=== PATIENT | female | born 1985 | race Caucasian/White ===

== ENCOUNTER 2017-01-09 13:15 | Emergency (ER) | payer SELFPAY | END 2017-01-09 13:34 | disposition left against medical advice (07) | LOC: ERS 13:15 | DX: Z53.21 Procedure and treatment not carried out due to patient leaving prior to being seen by health care provider (principal) ==

== ENCOUNTER 2017-09-19 13:56 | Emergency (ER) | payer SELFPAY ==
[2017-09-19 15:14] LABS: #Lymphocytes 1.2 thou/uL (1.20-3.40); #Monocytes 0.3 thou/uL (0.11-0.59); #Neutrophils 2.7 thou/uL (1.40-6.50); %Basophils 0.4 % (0.0-1.0); %Eosinophils 0.7 % (0.0-10.0); %Lymphocytes 28.4 % (21.0-51.0); %Monocytes 7.4 % (0.0-10.0); %Neutrophils 63.1 % (42.0-75.0); Hemoglobin 9.5 g/dL (12.0-16.0); Mean Corpuscular HGB CONC 31.1 g/dL (32.0-36.0); Mean Corpuscular Volume 73.7 fL (78.0-98.0); Mean Platelet Volume 7.3 fL (7.4-10.4); Platelet Count 270 thou/uL (130-400); RBC Distribution Width 13.5 % (11.5-14.5); Red Blood Cell (RBC) Count 4.16 mill/uL (4.20-5.40); White Blood Cell (WBC) Count 4.3 thou/uL (4.8-10.8)
[2017-09-19 15:29] LABS: Elliptocytes SLIGHT = 2-5 cells (100X) (0-1/hpf); MDiff Complete? YES; Microcytosis SLIGHT = 6-15 cells (100X) (0-5/hpf); Ovalocytes SLIGHT = 2-5 cells (100X) (0-1/hpf); PLT Morphology Comment Appears Adequate; Polychromasia SLIGHT = 2-3 cells (100X) (0-2/hpf); Schistocytes SLIGHT = 2-5 cells (100X) (0-1/hpf)
--- NOTE | 2017-09-19 15:30 | RAD ---
FRONTAL VIEW CHEST: Date: 09/19/17 No prior comparison. INDICATION: Fever. FINDINGS: The lungs are hyperinflated without consolidation or effusion. No discrete pneumothorax. Cardiac silh ouette is normal size and the osseous structures are intact. IMPRESSION: No focal consolidation. POS: [facility]
[2017-09-19 15:31] LABS: BHCG - Serum Negative (NEGATIVE); Pregs Control Background? CLEAR/WHITE (CLR/WHITE); Pregs Control Bar Appear? YES (CONTROL BAR)
[2017-09-19 15:35] LABS: ALT (SGPT) 8 U/L (8-55); AST (SGOT) 12 U/L (5-34); Albumin 4.6 g/dL (3.5-5.0); Alkaline Phosphatase 60 U/L (40-150); Anion Gap 12 mmol/L (10-20); BUN (Urea Nitrogen) 12 mg/dL (7.0-18.7); Bilirubin, Total 0.3 mg/dL (0.2-1.2); Calc. Creatinine Clearance 0 mL/min (70-130); Calcium 9.1 mg/dL (7.8-10.44); Carbon Dioxide 23 mmol/L (22-29); Chloride 107 mmol/L (98-107); Estimated GFR-MDRD 69; Globulin 2.8 g/dL (2.4-3.5); Glucose 91 mg/dL (70-105); Lipase 13 U/L (8-78); Potassium 3.9 mmol/L (3.5-5.1); Protein, Total 7.4 g/dL (6.0-8.3); Sodium 138 mmol/L (136-145)
[2017-09-19] MEDS ORDERED: Ketorolac Tromethamine 30 MG/ML VIAL ONE (15:45)
[2017-09-19 16:11] LABS: Bilirubin Negative (Negative); Blood, Urine Moderate (Negative); Clarity CLEAR (Clear); Glucose, Urine (Dipstick) Negative (Negative); Leukocyte Negative (Negative); Nitrite Negative (Negative); Protein, Urine (Dipstick) Negative (Neg-Trace); Specific Gravity, Urine 1.023 (1.002-1.036)
[2017-09-19 16:12] LABS: Bacteria/HPF None Seen HPF (None Seen); Hyaline Casts/LPF 0-3 HYALINE CAST LPF (0-3 Hyaline); Pathc Cast-AUWi Flag 0.72 (0-2.49); RBC/HPF 0-3 HPF (0-3); Squamous Epithelial 0-3 HPF (0-3); WBC/HPF 0-3 HPF (0-3)
[2017-09-19] MEDS ORDERED: Dexamethasone 10 MG/ML VIAL ONE (16:35)
[2017-09-19] MEDS ORDERED: diphenhydrAMINE 50 MG/ML VIAL ONE (16:35)
[2017-09-20 19:54] LABS: Chlamydia by PCR Not Detected (NotDetected); GC by PCR Not Detected (NotDetected)
[2017-09-22 17:24] LABS: Lyme IgG/IgM AB <0.91 ISR (0.00-0.90)
== END 2017-09-19 17:05 ==
LOC: ERS 13:56
DX: N93.9 Abnormal uterine and vaginal bleeding, unspecified (principal); L40.9 Psoriasis, unspecified; F31.9 Bipolar disorder, unspecified
CPT/HCPCS: 36415; 71045; 80053; 81003; 81015; 83690; 84703; 85025; 86618; 86757; 87040; 87480; 87491; 87510; 87591; 87660; 96361; 96374; 96375; J1100; J1200; J1885

== ENCOUNTER 2021-04-11 08:44 | Outpatient (CLI) | payer BC ==
[2021-04-11 10:31] LABS: Hemoglobin 12.4 g/dL (12.0-15.5); Mean Corpuscular HGB CONC 31.6 g/dL (32.0-36.0); Mean Corpuscular Hemoglobin 27.9 pg (27.0-33.0); Mean Corpuscular Volume 88.3 fl (81.6-98.3); Mean Platelet Volume 9.5 fl (7.4-10.4); Platelet Count 269 10x3/uL (150-450); RBC Distribution Width 14.1 % (11.5-14.5); Red Blood Cell (RBC) Count 4.45 10x6/uL (3.90-5.03)
[2021-04-11 10:46] LABS: Anion Gap 12 mmol/L (10-20); BUN (Urea Nitrogen) 15 mg/dL (7.0-18.7); Calc. Creatinine Clearance 0 mL/min (70-130); Calcium 8.9 mg/dL (7.8-10.44); Carbon Dioxide 27 mmol/L (22-29); Chloride 105 mmol/L (98-107); Glucose 84 mg/dL (70-105); Potassium 3.7 mmol/L (3.5-5.1); Sodium 140 mmol/L (136-145)
[2021-04-11 17:42] LABS: SARS-CoV-2 PCR by NAA Not Detected (NotDetected)
== END 2021-04-11 08:45 | disposition home or self-care (01) ==
LOC: LABBT 08:44
PROVIDERS: ATTEND Neurological Surgery
DX: Z01.818 Encounter for other preprocedural examination (principal); M47.12 Other spondylosis with myelopathy, cervical region; Z20.822 Contact with and (suspected) exposure to COVID-19
CPT/HCPCS: 80048; 85027; 93005; 93010; U0003; U0005

== ENCOUNTER 2021-04-16 05:47 | Day surgery (SDC) | payer BC ==
[2021-04-12 10:47] VITALS: BMI 24.2
[2021-04-16] MEDS ORDERED: Midazolam HCl 2 mg/2 ml Vial ONE (07:22)
[2021-04-16] MEDS ORDERED: SUGAMMADEX SODIUM 200 MG/2 ML VIAL ONE (08:36)
[2021-04-16] MEDS ORDERED: Fentanyl 250 MCG/5 ML VIAL ONE (08:36)
[2021-04-16] MEDS ORDERED: Rocuronium Bromide 10 MG/ML (10ML VIAL) ONE (08:57)
[2021-04-16] MEDS ORDERED: Lidocaine 1% PF 5 ML VIAL ONE (08:57)
[2021-04-16] MEDS ORDERED: Glycopyrrolate 0.2 MG/ML 5 ML SYRINGE ONE (08:57)
[2021-04-16] MEDS ORDERED: Ondansetron PF 4 MG/2 ML Vial ONE ×2 (08:57→10:08)
[2021-04-16] MEDS ORDERED: Dexamethasone 20 MG/5 ML VIAL ONE (08:57)
[2021-04-16] MEDS ORDERED: PROPOFOL 200 MG/20 ML VIAL ONE (08:57)
[2021-04-16] MEDS ORDERED: Lidocaine 1% MPF 2 ML VIAL ONE (09:12)
[2021-04-16] MEDS ORDERED: Fentanyl 100 MCG/2 ML VIAL ONE ×3 (10:07→11:32)
[2021-04-16] MEDS ORDERED: HYDROmorphone 0.5 MG/0.5 ML SYRINGE ONE ×2 (10:33→11:11)
[2021-04-16] MEDS ORDERED: HYDROcodone/Acetaminophen 5/325 mg Tablet ONE (12:04)
[2021-04-16] MEDS ORDERED: tiZANidine HCl 4 MG TAB ONE (12:55)
== END 2021-04-16 13:28 | disposition home or self-care (01) ==
LOC: SDC 05:47
PROVIDERS: ATTEND Neurological Surgery
PROC: 0RG10A0 Fusion of Cervical Vertebral Joint with Interbody Fusion Device, Anterior Approach, Anterior Column, Open Approach (ICD-10-PCS; principal; 2021-04-16)
DX: M47.12 Other spondylosis with myelopathy, cervical region (principal); M50.022 Cervical disc disorder at C5-C6 level with myelopathy; M48.02 Spinal stenosis, cervical region; M51.36 Other intervertebral disc degeneration, lumbar region; Z79.899 Other long term (current) drug therapy; Z88.0 Allergy status to penicillin; Z88.1 Allergy status to other antibiotic agents; Z88.5 Allergy status to narcotic agent
CPT/HCPCS: 76000; C1713; C1776; J1100; J1170; J2250; J2405; J2704; J3010

== ENCOUNTER 2021-05-01 12:31 | Outpatient (CLI) | payer BC | END 2021-05-01 12:32 | disposition home or self-care (01) | LOC: TBSIIMAG 12:31 | PROVIDERS: ATTEND Neurological Surgery | DX: M47.12 Other spondylosis with myelopathy, cervical region (principal); Z98.1 Arthrodesis status | CPT/HCPCS: 72040 ==

== ENCOUNTER 2021-05-07 08:17 | Emergency (ER) | payer BC ==
[2021-05-07] MEDS ORDERED: Morphine 4 MG/ML VIAL ONE (09:06)
[2021-05-07 09:14] LABS: #Eosinphils 0.1 thou/uL (0.0-0.7); #Lymphocytes 1.1 thou/uL (1.20-3.40); #Monocytes 0.3 thou/uL (0.11-0.59); #Neutrophils 2.3 thou/uL (1.40-6.50); %Basophils 0.4 % (0.0-1.0); %Eosinophils 2.4 % (0.0-10.0); %Lymphocytes 29.1 % (21.0-51.0); %Monocytes 7.5 % (0.0-10.0); %Neutrophils 60.6 % (42.0-75.0); Hemoglobin 13.8 g/dL (12.0-16.0); Mean Corpuscular HGB CONC 32.3 g/dL (32.0-36.0); Mean Corpuscular Hemoglobin 29.1 pg (27.0-31.0); Mean Platelet Volume 6.7 fL (7.4-10.4); Platelet Count 227 thou/uL (130-400); RBC Distribution Width 13.7 % (11.5-14.5); Red Blood Cell (RBC) Count 4.74 mill/uL (4.20-5.40); White Blood Cell (WBC) Count 3.7 thou/uL (4.8-10.8)
[2021-05-07 09:17] LABS: BHCG - Serum Negative (NEGATIVE); Pregs Control Background? CLEAR/WHITE (CLR/WHITE); Pregs Control Bar Appear? YES (CONTROL BAR)
[2021-05-07 09:29] LABS: ALT (SGPT) 11 U/L (8-55); AST (SGOT) 12 U/L (5-34); Albumin 4.2 g/dL (3.5-5.0); Alkaline Phosphatase 84 U/L (40-110); Anion Gap 12 mmol/L (10-20); BUN (Urea Nitrogen) 11 mg/dL (7.0-18.7); Bilirubin, Total 0.3 mg/dL (0.2-1.2); Calc. Creatinine Clearance 0 mL/min (70-130); Carbon Dioxide 24 mmol/L (22-29); Chloride 107 mmol/L (98-107); Globulin 2.8 g/dL (2.4-3.5); Glucose 91 mg/dL (70-105); Potassium 3.9 mmol/L (3.5-5.1); Sodium 139 mmol/L (136-145)
[2021-05-07] MEDS ORDERED: Ketorolac Tromethamine 30 MG/ML VIAL ONE (11:04)
== END 2021-05-07 11:27 | disposition home or self-care (01) ==
LOC: ERS 08:17
DX: N93.9 Abnormal uterine and vaginal bleeding, unspecified (principal); R10.9 Unspecified abdominal pain; F17.210 Nicotine dependence, cigarettes, uncomplicated
CPT/HCPCS: 36415; 74177; 80053; 84703; 85025; 86850; 86900; 86901; 96374; 96375; J1885; J2270

== ENCOUNTER 2021-10-05 09:14 | Emergency (ER) | payer BC ==
[2021-10-05] MEDS ORDERED: Ketorolac Tromethamine 30 MG/ML VIAL ONE (10:48)
[2021-10-05] MEDS ORDERED: Metoclopramide HCl 10 MG/2 ML VIAL ONE (10:48)
[2021-10-05] MEDS ORDERED: Dexamethasone 10 MG/ML VIAL ONE (10:48)
[2021-10-05] MEDS ORDERED: diphenhydrAMINE 50 MG/ML VIAL ONE (10:48)
[2021-10-05] MEDS ORDERED: Fentanyl 100 MCG/2 ML VIAL ONE (10:48)
[2021-10-05 11:03] LABS: #Lymphocytes 1.2 thou/uL (1.20-3.40); #Monocytes 0.2 thou/uL (0.11-0.59); #Neutrophils 2.5 thou/uL (1.40-6.50); %Basophils 0.4 % (0.0-1.0); %Eosinophils 0.9 % (0.0-10.0); %Lymphocytes 30.3 % (21.0-51.0); %Neutrophils 62.4 % (42.0-75.0); Hemoglobin 13.8 g/dL (12.0-16.0); Mean Corpuscular HGB CONC 33.4 g/dL (32.0-36.0); Mean Corpuscular Hemoglobin 31.3 pg (27.0-31.0); Mean Corpuscular Volume 93.5 fL (78.0-98.0); Mean Platelet Volume 7.1 fL (7.4-10.4); Platelet Count 193 thou/uL (130-400); RBC Distribution Width 12.8 % (11.5-14.5); Red Blood Cell (RBC) Count 4.41 mill/uL (4.20-5.40); White Blood Cell (WBC) Count 3.9 thou/uL (4.8-10.8)
[2021-10-05 11:28] LABS: ALT (SGPT) 8 U/L (8-55); AST (SGOT) 15 U/L (5-34); Albumin 4.2 g/dL (3.5-5.0); Alkaline Phosphatase 57 U/L (40-110); Anion Gap 11 mmol/L (10-20); BUN (Urea Nitrogen) 14 mg/dL (7.0-18.7); Bilirubin, Total 0.6 mg/dL (0.2-1.2); Calc. Creatinine Clearance 0 mL/min (70-130); Calcium 8.8 mg/dL (7.8-10.44); Carbon Dioxide 25 mmol/L (22-29); Chloride 105 mmol/L (98-107); Estimated GFR 105; Globulin 2.3 g/dL (2.4-3.5); Glucose 90 mg/dL (70-105); Potassium 3.4 mmol/L (3.5-5.1); Protein, Total 6.5 g/dL (6.0-8.3); Sodium 138 mmol/L (136-145)
== END 2021-10-05 12:59 | disposition home or self-care (01) ==
LOC: ERS 09:14
DX: M54.12 Radiculopathy, cervical region (principal); R51.9 Headache, unspecified; L40.9 Psoriasis, unspecified; F17.210 Nicotine dependence, cigarettes, uncomplicated; Z79.899 Other long term (current) drug therapy
CPT/HCPCS: 72125; 80053; 85025; 93005; 96365; 96366; 96375; J1100; J1200; J1885; J2765; J3010

== ENCOUNTER 2021-10-22 13:50 | Outpatient (CLI) | payer BC | END 2021-10-22 13:51 | disposition home or self-care (01) | LOC: TBSIIMAG 13:50 | PROVIDERS: ATTEND Neurological Surgery | DX: M47.22 Other spondylosis with radiculopathy, cervical region (principal); Z98.1 Arthrodesis status | CPT/HCPCS: 72141 ==

== ENCOUNTER 2021-11-21 10:15 | Inpatient (IN) | payer BC ==
[2021-11-26] MEDS ORDERED: Fentanyl 100 MCG/2 ML VIAL ONE ×3 (11:42→14:22)
[2021-11-26] MEDS ORDERED: Midazolam HCl 2 mg/2 ml Vial ONE (11:42)
[2021-11-26] MEDS ORDERED: Scopolamine 1.5 mg/72 hour Patch ONE (11:43)
[2021-11-26] MEDS ORDERED: fentaNYL Citrate/PF 100 MCG/2 ML SYRINGE ONE (12:11)
[2021-11-26] MEDS ORDERED: Clindamycin/D5W 900 mg/50 ml Premix Bag ONE (12:26)
[2021-11-26] MEDS ORDERED: Dexamethasone 20 MG/5 ML VIAL ONE (12:30)
[2021-11-26] MEDS ORDERED: Ketorolac Tromethamine 30 MG/ML VIAL ONE (12:30)
[2021-11-26] MEDS ORDERED: Lidocaine 1% MPF 2 ML VIAL ONE (12:30)
[2021-11-26] MEDS ORDERED: Glycopyrrolate 0.2 MG/ML 5 ML SYRINGE ONE (12:30)
[2021-11-26] MEDS ORDERED: PROPOFOL 200 MG/20 ML VIAL ONE (12:30)
[2021-11-26] MEDS ORDERED: Rocuronium Bromide 10 MG/ML (10ML VIAL) ONE (12:30)
[2021-11-26] MEDS ORDERED: NEOSTIGMINE 3 MG/3 ML SYR 3 MG/3 ML SYRINGE ONE (12:30)
[2021-11-26] MEDS ORDERED: Ondansetron PF 4 MG/2 ML Vial ONE ×2 (12:30→13:47)
[2021-11-26] MEDS ORDERED: Cyclobenzaprine 10 MG TAB PO PRN (13:24)
[2021-11-26] MEDS ORDERED: Promethazine 25 MG TAB PO PRN (13:24)
[2021-11-26] MEDS ORDERED: Mag-Al 1200 mg/1200 mg/30 ML UDCUP PO PRN (13:24)
[2021-11-26] MEDS ORDERED: Milk Of Magnesia 30 ML UDCUP PO PRN (13:24)
[2021-11-26] MEDS ORDERED: diphenhydrAMINE 50 MG/ML VIAL IVP PRN (13:24)
[2021-11-26] MEDS ORDERED: HYDROcodone/Acetaminophen 10/325 mg Tablet PO PRN (13:24)
[2021-11-26] MEDS ORDERED: Acetaminophen 325 MG TAB PO PRN (13:24)
[2021-11-26 16:07] VITALS: BMI 24.9
[2021-11-26] MEDS: Morphine 2 MG/ML VIAL SLOW IVP PRN ×2 (16:22→21:25)
[2021-11-26] MEDS: Sodium Chloride 0.9% 1,000 ML IV SCH (16:23)
[2021-11-26] MEDS: Ondansetron PF 4 MG/2 ML Vial IVP PRN (16:29)
[2021-11-26] MEDS: HYDROcodone/Acetaminophen 10/325 mg Tablet PO PRN (18:25)
[2021-11-26] MEDS: Clindamycin/D5W 900 MG in Premix Bag 1 BAG IVPB SCH (21:34)
[2021-11-27] MEDS: HYDROcodone/Acetaminophen 10/325 mg Tablet PO PRN ×3 (00:07→09:19)
[2021-11-27] MEDS: Ondansetron PF 4 MG/2 ML Vial IVP PRN (00:09)
[2021-11-27] MEDS: Morphine 2 MG/ML VIAL SLOW IVP PRN ×2 (01:31→06:34)
[2021-11-27] MEDS: Sodium Chloride 0.9% 1,000 ML IV SCH (02:50)
[2021-11-27] MEDS: Clindamycin/D5W 900 MG in Premix Bag 1 BAG IVPB SCH (04:36)
[2021-11-27 06:55] VITALS: TEMP 98.4
[2021-11-27 07:57] VITALS: BP 111/72
[2021-11-27] MEDS ORDERED: Estradiol 1 MG TAB PO SCH (09:00)
[2021-11-27] MEDS ORDERED: predniSONE 5 MG TAB PO SCH (09:00)
== END 2021-11-27 11:01 | disposition home or self-care (01) | DRG 473 ==
LOC: SURG A 11-26 08:11 → T4-B 11-26 16:01
PROVIDERS: ADMIT Neurological Surgery; ATTEND Neurological Surgery
PROC: 0RG10A0 Fusion of Cervical Vertebral Joint with Interbody Fusion Device, Anterior Approach, Anterior Column, Open Approach (ICD-10-PCS; principal; 2021-11-26)
PROC: 0RB30ZZ Excision of Cervical Vertebral Disc, Open Approach (ICD-10-PCS; 2021-11-26)
PROC: 0PP304Z Removal of Internal Fixation Device from Cervical Vertebra, Open Approach (ICD-10-PCS; 2021-11-26)
DX: M50.123 Cervical disc disorder at C6-C7 level with radiculopathy (principal); Z20.822 Contact with and (suspected) exposure to COVID-19; Z88.1 Allergy status to other antibiotic agents; Z88.5 Allergy status to narcotic agent; Z90.710 Acquired absence of both cervix and uterus
CPT/HCPCS: 76000; C1713; J1100; J1885; J2250; J2270; J2405; J2704; J3010; J3490; J7050; Q0169

== ENCOUNTER 2021-11-21 10:16 | Outpatient (CLI) | payer BC ==
[2021-11-21 11:22] LABS: Hemoglobin 15.3 g/dL (12.0-15.5); Mean Corpuscular HGB CONC 33.8 g/dL (32.0-36.0); Mean Corpuscular Hemoglobin 30.5 pg (27.0-33.0); Mean Platelet Volume 9.1 fl (7.4-10.4); Platelet Count 212 10x3/uL (150-450); RBC Distribution Width 13.2 % (11.5-14.5); Red Blood Cell (RBC) Count 5.02 10x6/uL (3.90-5.03); White Blood Cell (WBC) Count 7.1 10x3/uL (3.5-10.5)
[2021-11-21 11:46] LABS: Anion Gap 13 mmol/L (10-20); BUN (Urea Nitrogen) 14 mg/dL (7.0-18.7); Calc. Creatinine Clearance 0 mL/min (70-130); Calcium 9.6 mg/dL (7.8-10.44); Carbon Dioxide 26 mmol/L (22-29); Chloride 102 mmol/L (98-107); Estimated GFR 87; Glucose 87 mg/dL (70-105); Potassium 3.9 mmol/L (3.5-5.1); Sodium 137 mmol/L (136-145)
== END 2021-11-21 10:17 | disposition home or self-care (01) ==
LOC: LABBT 10:16
PROVIDERS: ATTEND Neurological Surgery
DX: Z01.812 Encounter for preprocedural laboratory examination (principal); Z20.822 Contact with and (suspected) exposure to COVID-19
CPT/HCPCS: 80048; 85027; 87811

== ENCOUNTER 2021-12-13 09:01 | Outpatient (CLI) | payer BC | END 2021-12-13 09:02 | disposition home or self-care (01) | LOC: TBSIIMAG 09:01 | PROVIDERS: ATTEND Neurological Surgery | DX: M54.12 Radiculopathy, cervical region (principal); Z98.1 Arthrodesis status | CPT/HCPCS: 72040 ==

== ENCOUNTER 2022-02-06 11:10 | Outpatient (CLI) | payer BC | END 2022-02-06 11:11 | disposition home or self-care (01) | LOC: TBSIIMAG 11:10 | PROVIDERS: ATTEND Neurological Surgery | DX: M54.12 Radiculopathy, cervical region (principal) | CPT/HCPCS: 72040 ==

== ENCOUNTER 2022-02-15 12:52 | Outpatient (CLI) | payer BC | END 2022-02-15 12:53 | disposition home or self-care (01) | LOC: TBSIIMAG 12:52 | PROVIDERS: ATTEND Neurological Surgery | DX: M54.16 Radiculopathy, lumbar region (principal); M54.12 Radiculopathy, cervical region; M51.37 Other intervertebral disc degeneration, lumbosacral region; Q05.7 Lumbar spina bifida without hydrocephalus; Z98.1 Arthrodesis status | CPT/HCPCS: 72141; 72148 ==

== ENCOUNTER 2022-02-20 07:50 | Emergency (ER) | payer BC ==
[2022-02-20] MEDS ORDERED: Ketorolac Tromethamine 30 MG/ML VIAL ONE (09:28)
[2022-02-20] MEDS ORDERED: Ondansetron ODT 8 MG TAB ONE (09:28)
[2022-02-20] MEDS ORDERED: SUMAtriptan Succinate 6 MG/0.5 ML VIAL ONE (09:28)
[2022-02-20] MEDS ORDERED: Lidocaine 1% w/Epinephrine 1:100K 20 ML VIAL ONE (10:00)
== END 2022-02-20 10:36 | disposition home or self-care (01) ==
LOC: ERS 07:50
DX: R51.9 Headache, unspecified (principal); F17.210 Nicotine dependence, cigarettes, uncomplicated
CPT/HCPCS: 96372; 99283; J1885; J3030; Q0162

== ENCOUNTER 2022-05-23 12:20 | Outpatient (CLI) | payer BC | END 2022-05-23 12:21 | disposition home or self-care (01) | LOC: TBSIIMAG 12:20 | PROVIDERS: ATTEND Neurological Surgery | DX: M54.12 Radiculopathy, cervical region (principal); Z98.1 Arthrodesis status | CPT/HCPCS: 72040 ==

== ENCOUNTER 2022-06-26 07:52 | Emergency (ER) | payer BC ==
[2022-06-26 09:38] LABS: #Eosinphils 0.1 thou/uL (0.0-0.7); #Lymphocytes 1.2 thou/uL (1.20-3.40); #Monocytes 0.4 thou/uL (0.11-0.59); #Neutrophils 5.3 thou/uL (1.40-6.50); %Basophils 0.3 % (0.0-1.0); %Eosinophils 1.1 % (0.0-10.0); %Lymphocytes 17.2 % (21.0-51.0); %Monocytes 6.2 % (0.0-10.0); %Neutrophils 75.1 % (42.0-75.0); Hemoglobin 14.9 g/dL (12.0-16.0); Mean Corpuscular HGB CONC 32.5 g/dL (32.0-36.0); Mean Corpuscular Hemoglobin 31.1 pg (27.0-31.0); Mean Corpuscular Volume 95.6 fl (78.0-98.0); Platelet Count 210 10x3/uL (130-400)
[2022-06-26] MEDS ORDERED: Ondansetron PF 4 MG/2 ML Vial ONE (09:39)
[2022-06-26] MEDS ORDERED: Prochlorperazine 10 MG/2 ML VIAL ONE (09:39)
[2022-06-26] MEDS ORDERED: Acetaminophen 500 MG TAB ONE (09:39)
[2022-06-26] MEDS ORDERED: Ketorolac Tromethamine 30 MG/ML VIAL ONE (09:39)
[2022-06-26] MEDS ORDERED: diphenhydrAMINE 50 MG/ML VIAL ONE (09:39)
[2022-06-26 09:47] LABS: BHCG - Serum Negative (NEGATIVE); Pregs Control Background? CLEAR/WHITE (CLR/WHITE); Pregs Control Bar Appear? YES (CONTROL BAR)
[2022-06-26] MEDS ORDERED: Metoclopramide HCl 10 MG/2 ML VIAL ONE (09:48)
[2022-06-26 09:52] LABS: ALT (SGPT) 12 U/L (8-55); AST (SGOT) 14 U/L (5-34); Albumin 4.4 g/dL (3.5-5.0); Alkaline Phosphatase 69 U/L (40-110); Anion Gap 11 mmol/L (10-20); BUN (Urea Nitrogen) 12 mg/dL (7.0-18.7); Bilirubin, Total 0.3 mg/dL (0.2-1.2); Calc. Creatinine Clearance 0 mL/min (70-130); Calcium 9.2 mg/dL (7.8-10.44); Carbon Dioxide 25 mmol/L (22-29); Chloride 106 mmol/L (98-107); Estimated GFR 86; Globulin 2.8 g/dL (2.4-3.5); Glucose 102 mg/dL (70-105); Lipase 6 U/L (8-78); Protein, Total 7.2 g/dL (6.0-8.3); Sodium 138 mmol/L (136-145)
[2022-06-26 10:41] LABS: Bilirubin Negative (Negative); Blood, Urine Negative (Negative); Clarity Clear (Clear); Glucose, Urine (Dipstick) Normal (Negative); Ketone, Urine Negative (Negative); Leukocyte Negative Leu/uL (Negative); Nitrite Negative (Negative); Protein, Urine (Dipstick) Negative (Neg-Trace); Specific Gravity, Urine 1.023 (1.002-1.036); Urobilinogen Normal mg/dL (Less than 2); pH, Urine 5.5 (5.0-9.0)
[2022-06-26] MEDS ORDERED: predniSONE 20 MG TAB ONE (10:55)
== END 2022-06-26 11:40 | disposition home or self-care (01) ==
LOC: ERS 07:52
DX: M50.33 Other cervical disc degeneration, cervicothoracic region (principal); R51.9 Headache, unspecified; R19.7 Diarrhea, unspecified; R11.2 Nausea with vomiting, unspecified; F17.210 Nicotine dependence, cigarettes, uncomplicated
CPT/HCPCS: 36415; 80053; 81003; 83690; 84703; 85025; 96361; 96374; 96375; J0780; J1200; J1885; J2405; J2765; J7512

== ENCOUNTER 2022-06-30 07:42 | Emergency (ER) | payer BC ==
[2022-06-30] MEDS ORDERED: Ketorolac Tromethamine 30 MG/ML VIAL ONE (08:06)
[2022-06-30] MEDS ORDERED: Azithromycin 500 MG VIAL ONE (08:06)
[2022-06-30] MEDS ORDERED: Ipratropium/Albuterol 3 ML NEB ONE (08:26)
[2022-06-30 09:18] LABS: #Eosinphils 0.1 thou/uL (0.0-0.7); #Monocytes 0.5 thou/uL (0.11-0.59); %Basophils 0.2 % (0.0-1.0); %Eosinophils 1.8 % (0.0-10.0); %Lymphocytes 15.7 % (21.0-51.0); %Monocytes 7.3 % (0.0-10.0); Hemoglobin 14.5 g/dL (12.0-16.0); Mean Corpuscular HGB CONC 35.6 g/dL (32.0-36.0); Mean Corpuscular Hemoglobin 33.6 pg (27.0-31.0); Mean Corpuscular Volume 94.4 fl (78.0-98.0); Mean Platelet Volume 6.9 fL (7.4-10.4); Platelet Count 174 10x3/uL (130-400); RBC Distribution Width 11.6 % (11.5-14.5); White Blood Cell (WBC) Count 6.7 10x3/uL (4.8-10.8)
[2022-06-30 09:37] LABS: ALT (SGPT) 10 U/L (8-55); AST (SGOT) 15 U/L (5-34); Albumin 3.8 g/dL (3.5-5.0); Alkaline Phosphatase 71 U/L (40-110); Anion Gap 11 mmol/L (10-20); BUN (Urea Nitrogen) 12 mg/dL (7.0-18.7); Bilirubin, Total 0.3 mg/dL (0.2-1.2); Calc. Creatinine Clearance 0 mL/min (70-130); Calcium 8.4 mg/dL (7.8-10.44); Carbon Dioxide 21 mmol/L (22-29); Chloride 108 mmol/L (98-107); Estimated GFR 101; Globulin 2.7 g/dL (2.4-3.5); Glucose 102 mg/dL (70-105); Potassium 3.9 mmol/L (3.5-5.1); Protein, Total 6.5 g/dL (6.0-8.3); Sodium 136 mmol/L (136-145)
[2022-06-30] MEDS ORDERED: diphenhydrAMINE 50 MG/ML VIAL ONE (09:37)
[2022-06-30] MEDS ORDERED: Metoclopramide HCl 10 MG/2 ML VIAL ONE (09:37)
[2022-06-30 11:32] LABS: SARS-CoV-2 NAA Rapid Test Not Detected (NotDetected)
== END 2022-06-30 11:34 | disposition home or self-care (01) ==
LOC: ERS 07:42
DX: J18.9 Pneumonia, unspecified organism (principal); F17.210 Nicotine dependence, cigarettes, uncomplicated; Z20.822 Contact with and (suspected) exposure to COVID-19
CPT/HCPCS: 36415; 71045; 80053; 83605; 85025; 87040; 96365; 96375; J0456; J1200; J1885; J2765; J7620

== ENCOUNTER 2022-07-08 08:37 | Inpatient (IN) | payer BC ==
[2022-07-08 09:28] LABS: #Eosinphils 0.1 thou/uL (0.0-0.7); #Lymphocytes 1.4 thou/uL (1.20-3.40); #Monocytes 0.3 thou/uL (0.11-0.59); #Neutrophils 3.2 thou/uL (1.40-6.50); %Basophils 0.1 % (0.0-1.0); %Eosinophils 1.2 % (0.0-10.0); %Lymphocytes 27.4 % (21.0-51.0); %Monocytes 6.3 % (0.0-10.0); %Neutrophils 65.2 % (42.0-75.0); Hemoglobin 15.2 g/dL (12.0-16.0); Mean Corpuscular HGB CONC 36.1 g/dL (32.0-36.0); Mean Corpuscular Hemoglobin 33.4 pg (27.0-31.0); Mean Corpuscular Volume 92.6 fl (78.0-98.0); Mean Platelet Volume 7.2 fL (7.4-10.4); Platelet Count 239 10x3/uL (130-400); RBC Distribution Width 11.5 % (11.5-14.5); Red Blood Cell (RBC) Count 4.55 mill/uL (4.20-5.40)
[2022-07-08 09:49] LABS: ALT (SGPT) 10 U/L (8-55); AST (SGOT) 15 U/L (5-34); Albumin 4.3 g/dL (3.5-5.0); Alkaline Phosphatase 70 U/L (40-110); Anion Gap 13 mmol/L (10-20); BUN (Urea Nitrogen) 13 mg/dL (7.0-18.7); Bilirubin, Total 0.5 mg/dL (0.2-1.2); Calc. Creatinine Clearance 0 mL/min (70-130); Calcium 9.2 mg/dL (7.8-10.44); Carbon Dioxide 23 mmol/L (22-29); Chloride 106 mmol/L (98-107); Estimated GFR 89; Globulin 2.8 g/dL (2.4-3.5); Glucose 96 mg/dL (70-105); Potassium 4.1 mmol/L (3.5-5.1); Protein, Total 7.1 g/dL (6.0-8.3); Sodium 138 mmol/L (136-145)
[2022-07-08] MEDS ORDERED: Iopamidol 370 76% 100 ML VIAL ONE (09:57)
[2022-07-08] MEDS ORDERED: Aspirin Chewable 81 MG TAB ONE (10:18)
[2022-07-08] MEDS ORDERED: diphenhydrAMINE 50 MG/ML VIAL ONE (10:26)
[2022-07-08] MEDS ORDERED: Prochlorperazine 10 MG/2 ML VIAL ONE (10:26)
[2022-07-08] MEDS ORDERED: Communication Order-Pharmacy FS SCH (10:45)
[2022-07-08] MEDS ORDERED: Lidocaine 1% (PF) 30 ML VIAL ONE (11:09)
[2022-07-08] MEDS ORDERED: Ondansetron PF 4 MG/2 ML Vial IVP PRN (11:42)
[2022-07-08] MEDS ORDERED: HYDROcodone/Acetaminophen 10/325 mg Tablet PO PRN (11:42)
[2022-07-08] MEDS ORDERED: Ondansetron ODT 4 MG TAB PO PRN (11:42)
[2022-07-08] MEDS ORDERED: Acetaminophen 325 MG TAB PO PRN (11:42)
[2022-07-08] MEDS ORDERED: Electrolyte Replacement Protocol 1 EACH FS SCH (11:45)
[2022-07-08] MEDS ORDERED: HYDROcodone/Acetaminophen 5/325 mg Tablet PO PRN (11:46)
[2022-07-08] MEDS ORDERED: Heparin 10,000 UNITS/ 10 ML VIAL ONE (11:50)
[2022-07-08] MEDS ORDERED: fentaNYL 50 mcg/mL 1 mL Vial ONE (11:50)
[2022-07-08] MEDS ORDERED: Midazolam HCl 2 mg/2 ml Vial ONE (11:50)
[2022-07-08] MEDS ORDERED: Electrolyte Replacement Protocol FS PRN (12:00)
[2022-07-08] MEDS ORDERED: HYDROcodone/Acetaminophen 5/325 mg Tablet ONE (13:08)
[2022-07-08] MEDS ORDERED: Nitroglycerin 0.4 MG TAB (25 Tab Bottle) SL PRN (14:37)
[2022-07-08] MEDS ORDERED: Sodium Chloride 0.9% 200 ML IV PRN (14:37)
[2022-07-08 15:52] LABS: Troponin I Less than 0.010 ng/mL (< 0.028)
[2022-07-08 16:06] LABS: Troponin I Less than 0.010 ng/mL (< 0.028)
[2022-07-08 16:17] VITALS: BP 99/64; TEMP 98.2; BMI 24.1
[2022-07-08] MEDS ORDERED: Cyclobenzaprine 10 MG TAB PO PRN (17:32)
[2022-07-08] MEDS ORDERED: Pregabalin 75 MG CAP PO SCH (21:00)
[2022-07-08] MEDS ORDERED: Atorvastatin Calcium 40 MG TAB PO SCH (21:00)
[2022-07-09] MEDS ORDERED: Estradiol 1 MG TAB PO SCH (09:00)
[2022-07-09] MEDS ORDERED: busPIRone HCl 10 MG TAB PO SCH (09:00)
[2022-07-09] MEDS ORDERED: Aspirin 81 mg Enteric Coated Tablet PO SCH (09:00)
== END 2022-07-08 18:33 | disposition home or self-care (01) | DRG 287 ==
LOC: ERS 08:37 → ERHOLD 11:48 → SURG A 14:05 → 2SW 15:38
PROVIDERS: ADMIT Internal Medicine; ATTEND Internal Medicine
PROC: 4A023N7 Measurement of Cardiac Sampling and Pressure, Left Heart, Percutaneous Approach (ICD-10-PCS; principal; 2022-07-08)
PROC: B2111ZZ Fluoroscopy of Multiple Coronary Arteries using Low Osmolar Contrast (ICD-10-PCS; 2022-07-08)
PROC: B2151ZZ Fluoroscopy of Left Heart using Low Osmolar Contrast (ICD-10-PCS; 2022-07-08)
DX: R07.9 Chest pain, unspecified (principal); I10 Essential (primary) hypertension; F41.9 Anxiety disorder, unspecified; F31.9 Bipolar disorder, unspecified; F17.210 Nicotine dependence, cigarettes, uncomplicated; Z71.6 Tobacco abuse counseling; Z79.899 Other long term (current) drug therapy; Z79.82 Long term (current) use of aspirin; Z88.8 Allergy status to other drugs, medicaments and biological substances; Z88.1 Allergy status to other antibiotic agents; Z88.0 Allergy status to penicillin; Z88.6 Allergy status to analgesic agent; E78.5 Hyperlipidemia, unspecified; Z98.1 Arthrodesis status; Z98.51 Tubal ligation status; Z82.49 Family history of ischemic heart disease and other diseases of the circulatory system; L40.9 Psoriasis, unspecified
CPT/HCPCS: 36415; 71045; 80053; 84484; 85025; 85379; 93005; 93458; 94760; 96365; 96375; 99152; 99153; C1769; J0780; J1200; J1644; J2001; J2250; J3010

== ENCOUNTER 2022-07-15 06:56 | Inpatient (IN) | payer BC ==
[2022-07-15] MEDS ORDERED: Ketorolac Tromethamine 30 MG/ML VIAL ONE (07:40)
[2022-07-15] MEDS ORDERED: Morphine 4 MG/ML VIAL ONE (07:40)
[2022-07-15 07:51] LABS: #Eosinphils 0.1 thou/uL (0.0-0.7); #Monocytes 0.5 thou/uL (0.11-0.59); #Neutrophils 4.9 thou/uL (1.40-6.50); %Basophils 0.5 % (0.0-1.0); %Eosinophils 0.9 % (0.0-10.0); %Lymphocytes 15.6 % (21.0-51.0); Hemoglobin 13.7 g/dL (12.0-16.0); Mean Corpuscular HGB CONC 34.9 g/dL (32.0-36.0); Mean Corpuscular Hemoglobin 32.6 pg (27.0-31.0); Mean Corpuscular Volume 93.4 fl (78.0-98.0); Mean Platelet Volume 7.3 fL (7.4-10.4); Platelet Count 233 10x3/uL (130-400); RBC Distribution Width 11.5 % (11.5-14.5); Red Blood Cell (RBC) Count 4.19 mill/uL (4.20-5.40); White Blood Cell (WBC) Count 6.4 10x3/uL (4.8-10.8)
[2022-07-15 08:13] LABS: ALT (SGPT) 10 U/L (8-55); AST (SGOT) 12 U/L (5-34); Albumin 4.1 g/dL (3.5-5.0); Alkaline Phosphatase 73 U/L (40-110); Anion Gap 12 mmol/L (10-20); BUN (Urea Nitrogen) 9 mg/dL (7.0-18.7); Bilirubin, Total 0.7 mg/dL (0.2-1.2); Calc. Creatinine Clearance 0 mL/min (70-130); Carbon Dioxide 22 mmol/L (22-29); Chloride 108 mmol/L (98-107); Estimated GFR 95; Globulin 2.7 g/dL (2.4-3.5); Glucose 101 mg/dL (70-105); Lipase 10 U/L (8-78); Protein, Total 6.8 g/dL (6.0-8.3); Sodium 138 mmol/L (136-145)
[2022-07-15] MEDS ORDERED: Calcium Carbonate 500 MG ChewTAB PO PRN (08:42)
[2022-07-15] MEDS ORDERED: Ondansetron ODT 4 MG TAB PO PRN (08:42)
[2022-07-15] MEDS ORDERED: Senokot S 8.6-50 MG TAB PO PRN (08:42)
[2022-07-15] MEDS ORDERED: Acetaminophen 325 MG TAB PO PRN (08:42)
[2022-07-15] MEDS ORDERED: Cyclobenzaprine 10 MG TAB PO PRN (08:46)
[2022-07-15] MEDS ORDERED: Iopamidol 370 76% 100 ML VIAL ONE (09:41)
[2022-07-15] MEDS: busPIRone HCl 10 MG TAB PO SCH (11:38)
[2022-07-15] MEDS: Pregabalin 75 MG CAP PO SCH ×2 (11:38→21:46)
[2022-07-15 12:15] VITALS: BMI 26.9
[2022-07-15] MEDS: Nicotine 21 MG PATCH TD SCH (13:36)
[2022-07-15] MEDS: Morphine 2 MG/ML VIAL SLOW IVP PRN ×2 (13:36→19:47)
[2022-07-15] MEDS: Ondansetron PF 4 MG/2 ML Vial IVP PRN (17:54)
[2022-07-15] MEDS: HYDROcodone/Acetaminophen 10/325 mg Tablet PO SCH (17:55)
[2022-07-15] MEDS ORDERED: Ketorolac Tromethamine 30 MG/ML VIAL IVP PRN (19:47)
[2022-07-15] MEDS ORDERED: Sodium Chloride 0.9% 1,000 ML IV SCH (21:30)
[2022-07-15] MEDS: Atorvastatin Calcium 40 MG TAB PO SCH (21:45)
[2022-07-15 22:02] LABS: Hemoglobin 11.8 g/dL (12.0-16.0)
[2022-07-16] MEDS: HYDROcodone/Acetaminophen 10/325 mg Tablet PO SCH ×2 (00:17→06:06)
[2022-07-16] MEDS: Ondansetron PF 4 MG/2 ML Vial IVP PRN (00:17)
[2022-07-16 04:44] LABS: #Eosinphils 0.1 thou/uL (0.0-0.7); #Monocytes 0.4 thou/uL (0.11-0.59); #Neutrophils 2.4 thou/uL (1.40-6.50); %Basophils 0.5 % (0.0-1.0); %Eosinophils 1.4 % (0.0-10.0); %Lymphocytes 23.6 % (21.0-51.0); %Neutrophils 64.2 % (42.0-75.0); Hemoglobin 12.1 g/dL (12.0-16.0); Mean Corpuscular HGB CONC 31.9 g/dL (32.0-36.0); Mean Platelet Volume 9.2 fL (7.4-10.4); Platelet Count 210 10x3/uL (130-400); RBC Distribution Width 12.1 % (11.5-14.5); Red Blood Cell (RBC) Count 4.03 mill/uL (4.20-5.40); White Blood Cell (WBC) Count 3.7 10x3/uL (4.8-10.8)
[2022-07-16 05:09] LABS: ALT (SGPT) 7 U/L (8-55); AST (SGOT) 10 U/L (5-34); Albumin 3.4 g/dL (3.5-5.0); Alkaline Phosphatase 59 U/L (40-110); Anion Gap 10 mmol/L (10-20); BUN (Urea Nitrogen) 11 mg/dL (7.0-18.7); Bilirubin, Total 0.4 mg/dL (0.2-1.2); Calc. Creatinine Clearance 116 mL/min (70-130); Calcium 8.2 mg/dL (7.8-10.44); Carbon Dioxide 24 mmol/L (22-29); Chloride 110 mmol/L (98-107); Estimated GFR 101; Globulin 2.4 g/dL (2.4-3.5); Glucose 96 mg/dL (70-105); Potassium 3.7 mmol/L (3.5-5.1); Protein, Total 5.8 g/dL (6.0-8.3); Sodium 140 mmol/L (136-145)
[2022-07-16] MEDS: Dextrose 5 %-0.45 % NaCl 1,000 ML IV SCH ×2 (10:08→21:31)
[2022-07-16] MEDS: Morphine 2 MG/ML VIAL SLOW IVP PRN ×5 (11:13→23:56)
[2022-07-16] MEDS: Promethazine HCl 12.5 MG in Sodium Chloride 0.9% 50 ML IVPB PRN ×2 (11:14→18:23)
[2022-07-16 11:50] LABS: Hemoglobin 12.2 g/dL (12.0-16.0)
[2022-07-16] MEDS: Nicotine 21 MG PATCH TD SCH (12:58)
[2022-07-16] MEDS: Pregabalin 75 MG CAP PO SCH ×2 (14:12→20:20)
[2022-07-16] MEDS: busPIRone HCl 10 MG TAB PO SCH (14:12)
[2022-07-16] MEDS: Atorvastatin Calcium 40 MG TAB PO SCH (20:20)
[2022-07-17] MEDS: Morphine 2 MG/ML VIAL SLOW IVP PRN ×3 (03:25→09:19)
[2022-07-17] MEDS: Promethazine HCl 12.5 MG in Sodium Chloride 0.9% 50 ML IVPB PRN (03:41)
[2022-07-17 05:01] LABS: #Eosinphils 0.1 thou/uL (0.0-0.7); #Monocytes 0.4 thou/uL (0.11-0.59); #Neutrophils 2.1 thou/uL (1.40-6.50); %Basophils 0.3 % (0.0-1.0); %Eosinophils 1.8 % (0.0-10.0); %Monocytes 9.1 % (0.0-10.0); %Neutrophils 53.5 % (42.0-75.0); Hemoglobin 11.2 g/dL (12.0-16.0); Mean Corpuscular HGB CONC 31.8 g/dL (32.0-36.0); Mean Corpuscular Hemoglobin 30.3 pg (27.0-31.0); Mean Corpuscular Volume 95.1 fl (78.0-98.0); Mean Platelet Volume 9.3 fL (7.4-10.4); Platelet Count 233 10x3/uL (130-400); RBC Distribution Width 12.2 % (11.5-14.5); White Blood Cell (WBC) Count 3.9 10x3/uL (4.8-10.8)
[2022-07-17 05:26] LABS: Anion Gap 10 mmol/L (10-20); BUN (Urea Nitrogen) 9 mg/dL (7.0-18.7); Calc. Creatinine Clearance 122 mL/min (70-130); Carbon Dioxide 21 mmol/L (22-29); Chloride 111 mmol/L (98-107); Estimated GFR 107; Glucose 103 mg/dL (70-105); Sodium 138 mmol/L (136-145)
[2022-07-17] MEDS: Dextrose 5 %-0.45 % NaCl 1,000 ML IV SCH (07:48)
[2022-07-17 11:15] VITALS: BP 111/70; TEMP 98.1
[2022-07-17] MEDS: busPIRone HCl 10 MG TAB PO SCH (12:00)
[2022-07-17] MEDS: Pregabalin 75 MG CAP PO SCH (12:00)
== END 2022-07-17 12:05 | disposition home or self-care (01) | DRG 919 ==
LOC: SUATTDRO 06:56 → ERS 06:56 → 2SW 11:08 → OBSVTOIN 07-16 13:11
PROVIDERS: ADMIT Internal Medicine; ATTEND Internal Medicine
DX: I97.610 Postprocedural hemorrhage of a circulatory system organ or structure following a cardiac catheterization (principal); K66.1 Hemoperitoneum; Y83.8 Other surgical procedures as the cause of abnormal reaction of the patient, or of later complication, without mention of misadventure at the time of the procedure; G89.29 Other chronic pain; F17.210 Nicotine dependence, cigarettes, uncomplicated; I10 Essential (primary) hypertension; E78.5 Hyperlipidemia, unspecified; Z88.8 Allergy status to other drugs, medicaments and biological substances; Z88.1 Allergy status to other antibiotic agents; Z71.6 Tobacco abuse counseling; Z88.0 Allergy status to penicillin; Z88.6 Allergy status to analgesic agent; Z79.82 Long term (current) use of aspirin; Z79.899 Other long term (current) drug therapy; Z90.710 Acquired absence of both cervix and uterus; Z98.1 Arthrodesis status; F41.9 Anxiety disorder, unspecified; M50.90 Cervical disc disorder, unspecified, unspecified cervical region
CPT/HCPCS: 36415; 71045; 74177; 80048; 80053; 83690; 84484; 85025; 93005; 94760; 96361; 96374; 96375; 96376; G0378; J1885; J2270; J2272; J2405; J2550; J7042; J7050; Q9967

== ENCOUNTER 2022-07-21 12:50 | Emergency (ER) | payer BC ==
[~2022-07-21 12:50] MED LIST: Iopamidol-370 76% 500 ML MDV (1 ML CHARGE) ONE
[2022-07-21] MEDS ORDERED: Ketorolac Tromethamine 30 MG/ML VIAL ONE (13:32)
[2022-07-21 13:35] LABS: #Eosinphils 0.1 thou/uL (0.0-0.7); #Monocytes 0.4 thou/uL (0.11-0.59); #Neutrophils 5.1 thou/uL (1.40-6.50); %Basophils 0.3 % (0.0-1.0); %Eosinophils 1.4 % (0.0-10.0); %Lymphocytes 15.7 % (21.0-51.0); %Monocytes 5.5 % (0.0-10.0); %Neutrophils 76.8 % (42.0-75.0); Hemoglobin 13.5 g/dL (12.0-16.0); Mean Corpuscular HGB CONC 33.3 g/dL (32.0-36.0); Mean Corpuscular Hemoglobin 30.7 pg (27.0-31.0); Mean Platelet Volume 8.9 fL (7.4-10.4); Platelet Count 303 10x3/uL (130-400); RBC Distribution Width 12.4 % (11.5-14.5); White Blood Cell (WBC) Count 6.6 10x3/uL (4.8-10.8)
[2022-07-21 13:52] LABS: BHCG - Serum Negative (NEGATIVE); Pregs Control Background? CLEAR/WHITE (CLR/WHITE); Pregs Control Bar Appear? YES (CONTROL BAR)
[2022-07-21 13:56] LABS: INR-International Normal Ratio 1.1; Prothrombin Time 14.3 sec (12.0-14.7)
[2022-07-21 13:57] LABS: PTT 39.9 sec (22.9-36.1)
[2022-07-21 14:06] LABS: ALT (SGPT) 11 U/L (8-55); AST (SGOT) 17 U/L (5-34); Albumin 4.2 g/dL (3.5-5.0); Alkaline Phosphatase 79 U/L (40-110); Anion Gap 13 mmol/L (10-20); BUN (Urea Nitrogen) 12 mg/dL (7.0-18.7); Bilirubin, Total 0.4 mg/dL (0.2-1.2); Calc. Creatinine Clearance 0 mL/min (70-130); Calcium 9.6 mg/dL (7.8-10.44); Carbon Dioxide 24 mmol/L (22-29); Chloride 104 mmol/L (98-107); Estimated GFR 95; Globulin 3.2 g/dL (2.4-3.5); Glucose 114 mg/dL (70-105); Potassium 3.7 mmol/L (3.5-5.1); Protein, Total 7.4 g/dL (6.0-8.3); Sodium 137 mmol/L (136-145)
[2022-07-21] MEDS ORDERED: Morphine 4 MG/ML VIAL ONE (14:35)
[2022-07-21] MEDS ORDERED: Ondansetron PF 4 MG/2 ML Vial ONE (14:35)
== END 2022-07-21 15:49 | disposition home or self-care (01) ==
LOC: ERS 12:50
DX: R58 Hemorrhage, not elsewhere classified (principal); M54.50 Low back pain, unspecified; I10 Essential (primary) hypertension; F17.210 Nicotine dependence, cigarettes, uncomplicated
CPT/HCPCS: 74174; 80053; 83605; 84484; 84703; 85025; 85384; 85610; 85730; 86850; 86900; 86901; 93005; 96361; 96374; 96375; J1885; J2270; J2405; Q9967

== ENCOUNTER 2022-10-01 09:48 | Outpatient (CLI) | payer BC | END 2022-10-01 09:49 | disposition home or self-care (01) | LOC: RAD 09:48 | PROVIDERS: ATTEND Internal Medicine | DX: J40 Bronchitis, not specified as acute or chronic (principal) | CPT/HCPCS: 71046 ==

== ENCOUNTER 2023-01-02 09:15 | Outpatient (CLI) | payer BC | END 2023-01-02 09:16 | disposition home or self-care (01) | LOC: BICCT 09:15 | PROVIDERS: ATTEND Psychiatry & Neurology Neurology | DX: M48.02 Spinal stenosis, cervical region (principal); Z98.1 Arthrodesis status | CPT/HCPCS: 72127 ==

== ENCOUNTER 2023-01-05 08:25 | Emergency (ER) | payer BC ==
[2023-01-05] MEDS ORDERED: predniSONE 20 MG TAB ONE (09:22)
== END 2023-01-05 09:30 | disposition home or self-care (01) ==
LOC: ERS 08:25
DX: M25.511 Pain in right shoulder (principal); I10 Essential (primary) hypertension; F17.210 Nicotine dependence, cigarettes, uncomplicated
CPT/HCPCS: J7512

== ENCOUNTER 2023-02-24 12:10 | Outpatient (CLI) | payer BC | END 2023-02-24 12:11 | disposition home or self-care (01) | LOC: BICMRI 12:10 | PROVIDERS: ATTEND Physical Medicine & Rehabilitation | DX: M75.101 Unspecified rotator cuff tear or rupture of right shoulder, not specified as traumatic (principal) ==

== ENCOUNTER 2023-09-29 09:16 | Emergency (ER) | payer BC ==
[2023-09-29] MEDS ORDERED: Acetaminophen 500 MG TAB ONE (09:40)
[2023-09-29] MEDS ORDERED: diphenhydrAMINE 50 MG/ML VIAL ONE (09:40)
[2023-09-29] MEDS ORDERED: Metoclopramide HCl 10 MG (2 mL) VIAL ONE (09:41)
[2023-09-29 10:04] LABS: #Basophils Less than 0.03 10x3/uL (0.0-0.2); %Basophils 0.5 % (0.0-1.0); %Eosinophils 0.7 % (0.0-10.0); %Lymphocytes 23.4 % (21.0-51.0); %Monocytes 5.2 % (0.0-10.0); Hematocrit 46.2 % (36.0-47.0); Hemoglobin 15.9 g/dL (12.0-16.0); Mean Corpuscular HGB CONC 34.4 g/dL (32.0-36.0); Mean Corpuscular Hemoglobin 31.1 pg (27.0-31.0); Mean Corpuscular Volume 90.2 fL (78.0-98.0); Mean Platelet Volume 9.2 fL (7.4-10.4); Platelet Count 239 10x3/uL (130-400); RBC Distribution Width 12.3 % (11.5-14.5); Red Blood Cell (RBC) Count 5.12 mill/uL (4.20-5.40)
[2023-09-29 10:21] LABS: ALT (SGPT) 22 U/L (8-55); AST (SGOT) 20 U/L (5-34); Albumin 4.2 g/dL (3.5-5.0); Alkaline Phosphatase 64 U/L (40-110); Anion Gap 11 mmol/L (10-20); BUN (Urea Nitrogen) 11 mg/dL (7.0-18.7); Bilirubin, Total 0.4 mg/dL (0.2-1.2); Calc. Creatinine Clearance 0 mL/min (70-130); Calcium 9.4 mg/dL (7.8-10.44); Carbon Dioxide 26 mmol/L (22-29); Chloride 107 mmol/L (98-107); Estimated GFR 92; Globulin 3.2 g/dL (2.4-3.5); Glucose 114 mg/dL (70-105); Potassium 4.2 mmol/L (3.5-5.1); Protein, Total 7.4 g/dL (6.0-8.3); Sodium 140 mmol/L (136-145)
[2023-09-29] MEDS ORDERED: Ketorolac Tromethamine 30 MG (1 mL) VIAL ONE (10:29)
[2023-09-29 10:30] LABS: Influenza A by NAA Not Detected (NotDetected); Influenza B by NAA Not Detected (NotDetected); SARS-CoV-2 NAA Rapid Test Not Detected (NotDetected)
[2023-09-29] MEDS ORDERED: Magnesium 2 GM/50 ML BAG (IN WATER) ONE (10:51)
== END 2023-09-29 12:26 | disposition home or self-care (01) ==
LOC: ERS 09:16
DX: R51.9 Headache, unspecified (principal); M54.2 Cervicalgia; I10 Essential (primary) hypertension; F17.210 Nicotine dependence, cigarettes, uncomplicated
CPT/HCPCS: 70450; 72125; 80053; 85025; 96361; 96365; 96375; J1200; J1885; J2765; J3475

== ENCOUNTER 2023-10-02 13:40 | Outpatient (CLI) | payer BC | END 2023-10-02 13:41 | disposition home or self-care (01) | LOC: BICMAMMO 13:40 | PROVIDERS: ATTEND Family Medicine | DX: N63.13 Unspecified lump in the right breast, lower outer quadrant (principal); N63.15 Unspecified lump in the right breast, overlapping quadrants | CPT/HCPCS: 77066; G0279 ==

== ENCOUNTER 2024-12-14 11:41 | Outpatient (CLI) | payer BC | END 2024-12-14 11:42 | disposition home or self-care (01) | LOC: BICRAD 11:41 | PROVIDERS: ATTEND Family Medicine | DX: R07.9 Chest pain, unspecified (principal) | CPT/HCPCS: 71046 ==